=== PATIENT | male | born 1995 | race Caucasian/White ===

== ENCOUNTER 2021-06-30 12:34 | Emergency (ER) | payer BC, OTHER ==
[2021-06-30] MEDS ORDERED: Sodium Chloride 0.9% 1,000 ML IV ONE (12:36)
--- NOTE | 2021-06-30 12:38 | EDM.PDOC ---
ED HPI GENERAL MEDICAL PROBLEM - General Stated Complaint: EMS Time Seen by Provider: 06/30/21 12:35 Source of Information: Reports: Patient, EMS History Limitations: Reports: No Limitations - History of Present Illness INITIAL COMMENTS - FREE TEXT/NARRATIVE: 25-year-old male no past medical history presents for seizure. History is from EMS and patient. Patient is a poor historian secondary to poor recollection of the event. Per EMS patient was standing and then fell backwards hitting the back of his head on the sink. He had a seizure-like episode lasting less than 1 minute. Was afterwards very confused and altered. Roommate called EMS. Patient is here for work. He notes that he does not have a history of seizure disorder however had one seizure in the past. He notes drinking socially but denies binge drinking or recently discontinuing alcohol use. Last drink was last night. Patient did clarify with nursing that he is supposed to be on seizure medications but is noncompliant because he does not like the way they make him feel. lower neck Pain Score (Numeric/FACES): 2 - Related Data Allergies Allergy/AdvReac Type Severity Reaction Status Date / Time No Known Allergies Allergy Verified 06/30/21 12:57 Home Meds: Home Meds levETIRAcetam [Keppra] 500 mg PO BID 30 Days #60 tab 06/30/21 [Rx] ED ROS GENERAL - Review of Systems Review Of Systems: Comprehensive ROS is negative, except as noted in HPI. ED EXAM, GENERAL - Physical Exam Exam: See Below Exam Limited By: No Limitations General Appearance: Alert, WD/WN, No Apparent Distress Eye Exam: Bilateral Eye: EOMI, PERRL Ears: Hearing Grossly Normal Throat/Mouth: Normal Voice, No Airway Compromise Head: Atraumatic, Normocephalic Neck: Normal Inspection, Supple, Non-Tender. No: Tender Midline Respiratory/Chest: No Respiratory Distress, Lungs Clear, Normal Breath Sounds, No Accessory Muscle Use Cardiovascular: Normal Peripheral Pulses, Regular Rate, Rhythm Extremities: Normal Inspection Neurological: Alert, Oriented, CN II-XII Intact, Normal Cognition, No Motor/Sensory Deficits Psychiatric: Normal Affect, Normal Mood Skin Exam: Warm, Dry, Intact, Normal Color #1 Interpretation EKG Date: 06/30/21 Time: 13:48 Rhythm: NSR Rate (Beats/Min): 73 E[place]son: Normal P-Wave: Present QRS: Normal ST-T: Normal QT: Normal NV/PQ Interval: 143 Comparison: NA - No Prior EKG EKG Interpretation Comments: no acute ischemic changes Course - Vital Signs Last Recorded V/S: Last Vital Signs Temp 97 F 06/30/21 12:58 Pulse 99 06/30/21 12:58 Resp 18 06/30/21 12:58 BP 118/70 06/30/21 12:58 Pulse Ox 98 06/30/21 12:58 - Orders/Labs/Meds Orders: Active Orders 24 hr Category Date Time Status Blood Glucose Check, Bedside [RC] ONETIME Care 06/30/21 12:35 Active CORONAVIRUS COVID-19 BRANDI [MOLEC] Stat Lab 06/30/21 13:54 Received REFLEX LACTIC ACID YES OR NO [CHEM] Routine Lab 06/30/21 14:30 Received Saline Lock Insert [OM.PC] Stat Oth 06/30/21 12:37 Ordered Labs: Laboratory Tests 06/30/21 06/30/21 06/30/21 Range/Units 13:54 13:54 13:54 WBC 17.60 H (4.0-11.0) K/uL RBC 5.06 (4.50-5.90) M/uL Hgb 15.9 (13.0-17.0) g/dL Hct 43.8 (38.0-50.0) % MCV 86.6 (80.0-98.0) fL MCH 31.4 (27.0-32.0) pg MCHC 36.3 (31.0-37.0) g/dL RDW Std Deviation 39.4 (28.0-62.0) fl RDW Coeff of Skyler 13 (11.0-15.0) % Plt Count 272 (150-400) K/uL MPV 9.20 (7.40-12.00) fL Neut % (Auto) 79.0 (48.0-80.0) % Lymph % (Auto) 12.2 L (16.0-40.0) % [place] % (Auto) 7.7 (0.0-15.0) % Eos % (Auto) 1.0 (0.0-7.0) % Baso % (Auto) 0.1 (0.0-1.5) % Neut # (Auto) 13.9 H (1.4-5.7) K/uL Lymph # (Auto) 2.1 (0.6-2.4) K/uL [place] # (Auto) 1.4 H (0.0-0.8) K/uL Eos # (Auto) 0.2 (0.0-0.7) K/uL Baso # (Auto) 0.0 (0.0-0.1) K/uL Nucleated RBC % 0.0 /100WBC Nucleated RBCs # 0 K/uL Sodium 140 (136-148) mmol/L Potassium 4.1 (3.5-5.1) mmol/L Chloride 102 (98-107) mmol/L Carbon Dioxide 28.5 (21.0-32.0) mmol/L BUN 15 (7.0-18.0) mg/dL Creatinine 1.0 (0.8-1.3) mg/dL Est Cr Clr Drug Dosing 111.15 mL/min Estimated GFR (MDRD) > 60.0 ml/min Glucose 109 H (74-106) mg/dL Lactic Acid 2.1 H* (0.4-2.0) mmol/L Calcium 8.5 (8.5-10.1) mg/dL Magnesium 2.0 (1.8-2.4) mg/dL Total Bilirubin 0.7 (0.2-1.0) mg/dL AST 26 (15-37) IU/L ALT 27 (14-63) IU/L Alkaline Phosphatase 75 (46-116) U/L Total Protein 7.6 (6.4-8.2) g/dL Albumin 3.9 (3.4-5.0) g/dL Globulin 3.7 (2.6-4.0) g/dL Albumin/Globulin Ratio 1.1 (0.9-1.6) Ethyl Alcohol < 3.0 mg/dL Meds: Medications Discontinued Medications Generic Name Dose Route Start Last Admin Trade Name Freq PRN Reason Stop Dose Admin Sodium Chloride 1,000 mls @ 999 mls/hr 06/30/21 12:36 06/30/21 13:34 Normal Saline IV 06/30/21 13:36 999 mls/hr .Bolus ONE Administration Levetiracetam 1,500 mg/ 115 mls @ 460 mls/hr 06/30/21 13:23 06/30/21 14:17 Dextrose/Water IV 06/30/21 13:37 Not Given STAT STA Levetiracetam 1,500 mg/ 115 mls @ 460 mls/hr 06/30/21 13:42 06/30/21 14:10 Dextrose/Water IV 06/30/21 13:56 460 mls/hr STAT STA Administration Ondansetron HCl 4 mg 06/30/21 13:22 06/30/21 13:34 Ondansetron 4 Mg/2 Ml Sdv IVPUSH 06/30/21 13:23 4 mg ONETIME ONE Administration - Re-Assessments/Exams Free Text/Narrative Re-Assessment/Exam: 06/30/21 14:43 Labs unremarkable aside from mildly elevated lactate which is expected in the setting of seizure. 1 L IV fluid bolus given for lactate. Will discharge with Keppra. Patient notes that Keppra is a medication that he was supposed to be taking. Departure - Departure Time of Disposition: 14:43 Disposition: Home, Self-Care 01 Condition: Good Clinical Impression: Seizure - Discharge Information Prescriptions: levETIRAcetam [Keppra] 500 mg PO BID 30 Days #60 tab Instructions: Seizure, Adult Additional Instructions: Please take the Keppra as prescribed. It was sent to [facility]. If you experience another seizure within a 24-hour period then please come back to the emergency department for reassessment. You should follow-up with a neurologist. Information is provided below. [facility] [address], [address] [place] [address] The following information is given to patients seen in the emergency department who are being discharged to home. This information is to outline your options for follow-up care. We provide all patients seen in our emergency department with a follow-up referral. The need for follow-up, as well as the timing and circumstances, are variable depending upon the specifics of your emergency department visit. If you don't have a primary care physician on staff, we will provide you with a referral. We always advise you to contact your personal physician following an emergency department visit to inform them of the circumstance of the visit and for follow-up with them and/or the need for any referrals to a consulting specialist. The emergency department will also refer you to a specialist when appropriate. This referral assures that you have the opportunity for follow-up care with a specialist. All of these measure are taken in an effort to provide you with optimal care, which includes your follow-up. Under all circumstances we always encourage you to contact your private physician who remains a resource for coordinating your care. When calling for follow-up care, please make the office aware that this follow-up is from your recent emergency room visit. If for any reason you are refused follow-up, please contact the [facility] at and asked to speak to the emergency department charge nurse. Please follow up with your primary care physician. If you do not have a primary care physician, see below: [facility] [address] [place] [id number] [facility] [address] [place] [address] [id number] [facility] [address] [place] [id number] Sepsis Event Note (ED) - Focused Exam Vital Signs: Vital Signs Temp Pulse Resp BP Pulse Ox 06/30/21 12:58 97 F 99 18 118/70 98 - My Orders Last 24 Hours: My Active Orders 06/30/21 12:35 Blood Glucose Check, Bedside [RC] ONETIME 06/30/21 12:37 Saline Lock Insert [OM.PC] Stat 06/30/21 13:54 CORONAVIRUS COVID-19 BRANDI [MOLEC] Stat 06/30/21 14:30 REFLEX LACTIC ACID YES OR NO [CHEM] Routine - Assessment/Plan Last 24 Hours: My Active Orders 06/30/21 12:35 Blood Glucose Check, Bedside [RC] ONETIME 06/30/21 12:37 Saline Lock Insert [OM.PC] Stat 06/30/21 13:54 CORONAVIRUS COVID-19 BRANDI [MOLEC] Stat 06/30/21 14:30 REFLEX LACTIC ACID YES OR NO [CHEM] Routine
[2021-06-30] MEDS ORDERED: Ondansetron 4 MG/2 ML SDV IVPUSH ONE (13:22)
--- NOTE | 2021-06-30 13:43 | CT ---
INDICATION: Fall TECHNIQUE: CT cervical spine without contrast. COMPARISON: None FINDINGS: Vertebral alignment: Alignment is normal. Vertebrae: There are no fractures or suspicious bony lesions. Discs and facet joints: Disc spaces and facets are within normal limits. Extraspinal findings: Prevertebral soft tissues, visualized airway, and visualized lungs are unremarkable. IMPRESSION: Unremarkable cervical spine CT. Please note that all CT scans at this facility use dose modulation, iterative reconstruction, and/or weight-based dosing when appropriate to reduce radiation dose to as low as reasonably achievable. Dictated by Nirmal Wright MD @ 06/30/2021 1:43:21 PM (Electronically Signed)
--- NOTE | 2021-06-30 13:43 | CT ---
INDICATION: Fall, seizure TECHNIQUE: CT head without contrast. COMPARISON: And FINDINGS: CSF spaces: Within normal limits for age. Brain parenchyma: The almaguer-white differentiation is normal. No sign of mass, hemorrhage, or midline shift. Skull base and calvarium: No sinus mucosal thickening.. The visualized orbits are grossly unremarkable. No skull fractures. IMPRESSION: No evidence of acute intracranial trauma. Sinus mucosal thickening. Please note that all CT scans at this facility use dose modulation, iterative reconstruction, and/or weight-based dosing when appropriate to reduce radiation dose to as low as reasonably achievable. Dictated by Nirmal Wright MD @ 06/30/2021 1:41:52 PM (Electronically Signed)
[2021-06-30 14:21] LABS: BLOOD UREA NITROGEN,BUN 15 mg/dL (7.0-18.0); CARBON DIOXIDE,CO2 28.5 mmol/L (21.0-32.0); CHLORIDE,CL 102 mmol/L (98-107); GLUCOSE RANDOM 109 mg/dL (74-106); POTASSIUM,K 4.1 mmol/L (3.5-5.1); SODIUM,NA 140 mmol/L (136-148)
== END 2021-06-30 15:40 | disposition home or self-care (01) ==
LOC: MW.ED 12:34
DX: R56.9 Unspecified convulsions (principal); Z20.822 Contact with and (suspected) exposure to COVID-19
CPT/HCPCS: 36415; 70450; 72125; 80053; 80307; 83605; 83735; 85025; 87635; 93005; 96374; 96375; 99285; J1953; J2405; J7030; U0002